=== PATIENT | female | born 1960 | race Caucasian/White ===

== ENCOUNTER 2016-04-08 17:11 | Inpatient (IN) | payer BC ==
--- NOTE | ~2016-04-08 | OP ---
Record Of Operation [facility] [address] [place] [address] NAME: BERHANE ADDISON : 60 STATUS : ADM IN PAT#: [id number] AGE: 55 ADM/REG DATE : 04/09/16 MR#: [id number] REPORT SERV DATE: 04/25/16 DICTATED BY: EDUARDO DIAZ DATE: 04/25/16 REPORT STATUS : Draft TRANSCRIBED BY: JOEL DATE: 04/25/16 DATE OF PROCEDURE: 04/25/2016 PREOPERATIVE DIAGNOSIS: Dysphagia. PROCEDURE: Panendoscopy with biopsy. POSTOPERATIVE DIAGNOSES: 1. Marked gastritis. 2. Gastric retention. PREMEDICATION: Diprivan. PROCEDURE IN DETAIL: The scope was inserted without difficulty. There was a moderate Schatzki ring at the GE junction. There was a large amount of retained liquid along most of the stomach, greater curvature, and posterior wall. The anterior wall shows marked gastritis, biopsies were taken. I could not identify the pylorus or distal stomach. Dilatation was not performed. IMPRESSION: 1. Schatzki ring. 2. Gastritis. 3. Gastric retention. RECOMMENDATIONS: 1. Begin Reglan 10 mg t.i.d. IV. 2. We will check Gastrografin tube injection. NUPUR Eduardo Diza M.D. / [id number] CC: Berna Conley
--- NOTE | ~2016-04-08 | CN ---
Consultation Report [place] [id number] [place]. [address] NAME: BERHANE ADDISON : 60 STATUS : ADM IN PAT#: [id number] AGE: 55 ADM/REG DATE : 04/09/16 MR#: [id number] REPORT SERV DATE: 04/20/16 DICTATED BY: EDUARDO DIAZ DATE: 04/19/16 REPORT STATUS : Draft TRANSCRIBED BY: JOEL DATE: 04/19/16 CONSULTATION DATE OF CONSULTATION: 04/19/2016 I am asked to see this lady with dysphagia. HISTORY OF PRESENT ILLNESS: This 55-year-old woman was admitted with severe systemic symptoms including abdominal pain, cramps, and diarrhea. Dehydration was noted. She has been treated with IV fluids. She has a history of dysphagia and reports dilatation of the esophagus about a year ago. She currently denies heartburn or abdominal pain in the sternal area. REVIEW OF SYSTEMS: Otherwise, unremarkable. PAST MEDICAL HISTORY: Remarkable for COPD, congestive heart failure, rheumatoid arthritis, polycystic liver disease, hypertension, and coronary artery disease. MEDICATIONS: Listed medications include Elavil, aspirin, Colace, Prozac, Synthroid, Neurontin, and Deltasone. PHYSICAL EXAMINATION: CHEST: Clear to auscultation. CARDIAC: Regular rhythm without rubs or murmurs. ABDOMEN: Soft and nontender. Bowel sounds normal. No palpable mass. LABORATORY DATA: Most recent lab studies show hemoglobin of 10.7, white count 5600. BUN is 20 and creatinine is 0.48. IMPRESSION: Dysphagia. PLAN: Proceed with panendoscopy and dilatation as fluid status has repaired. Thank you for allowing me to see this lady. MACO/JOEL Eduardo Diaz M.D. / [id number] Consultation Report [facility] [address] [place]. [address] NAME: BERHANE ADDISON : 60 STATUS : ADM IN PAT#: [id number] AGE: 55 ADM/REG DATE : 04/09/16 MR#: [id number] REPORT SERV DATE: 04/20/16 DICTATED BY: EDUARDO DIAZ DATE: 04/19/16 REPORT STATUS : Draft TRANSCRIBED BY: JOEL DATE: 04/19/16 CC: Jac Carrillo
--- NOTE | ~2016-04-08 | IDS ---
Interim Discharge Summary [facility] [address] [place]. [address] NAME: BERHANE ADDISON : 60 STATUS : ADM IN [facility]#: [id number] AGE: 55 ADM/REG DATE : 04/09/16 MR#: [id number] REPORT SERV DATE: 04/14/16 DICTATED BY: ALONZO MCELROY DATE: 04/14/16 REPORT STATUS : Draft TRANSCRIBED BY: MODL DATE: 04/14/16 ADMISSION DATE: 04/09/2016 DISCHARGE DATE: CONSULTING PHYSICIAN: Dr. Johnson for Ortho. INTERIM DIAGNOSES: 1. Extended-spectrum beta-lactamases Escherichia coli urinary tract infections. 2. Compression fracture T11, L1, L2. 3. Status post dehydration. 4. Status post nausea, vomiting, and diarrhea. 5. Dysphagia with history of gastroparesis and PEG. 6. Chronic obstructive pulmonary disease. 7. Coronary artery disease. 8. Hypothyroidism. 9. Chronic pain. 10.Depression. 11.Rheumatoid arthritis. 12.Status post hypomagnesemia. DIAGNOSTIC EXAM: CAT scan of the abdomen and pelvis showing no bowel obstruction or acute intraabdominal process appreciated, new compression fractures at L1 and L5, osteoporosis is inappropriate for the patient's age. MRI of the lumbar spine showing fractures with marrow edema indicating acute component at T11, L1, and L2. L1 fracture had some retropulsion of osseous material which causes mild stenosis of the central canal, right lateral recess. L5 compression is new from 2016, but does not appear acute annular disc bulges at L2-L3 and L3- L4. Chest x-ray showing normal cardiac size with pulmonary venous congestion unchanged. No acute infiltrate. HOSPITAL COURSE: Please refer to the H and P done by Dr. Mayen, dated 12/07/2016. Briefly, this is a 55-year-old female, who comes in for nausea, vomiting, and diarrhea. The patient has a history of esophageal strictures and diverticulum, history of dysphagia, gastroparesis, severe rheumatoid arthritis, and chronic steroids, came to the hospital for nausea, vomiting, diarrhea, weakness, and severe back pain. The patient has a history also of osteoporosis and had previous compression fractures. She has been bed-bound since last year. She said it is about six months that she has been not walking around. She follows up with Dr. Cooper and there was a plan for her to have an elective surgery on her esophagus once she is more mobile, however, she never became mobile. The patient is taking Jevity at home and from time to time she gets this diarrhea, it would go away, then come back, but on this admission, she started having some nausea and vomiting, and came to the emergency room. In the ER, she was found to be dehydrated with hypomagnesemia. She was given fluids and got better. Further evaluation revealed that she is hypothyroid and we increased her Synthroid, and also has an ESBL E. coli. We switched her antibiotics to tobramycin and she seems to be tolerating this well. Meanwhile, we switched her Jevity to promote and the patient seems to tolerate this and the nausea, vomiting, and diarrhea went away. She is now wanting medications for constipation. Meanwhile, she always kept on complaining about vomiting, Interim Discharge Summary [place] [id number] [place]. [address] NAME: BERHANE ADDISON : 60 STATUS : ADM IN [facility]#: [id number] AGE: 55 ADM/REG DATE : 04/09/16 MR#: [id number] REPORT SERV DATE: 04/14/16 DICTATED BY: ALONZO MCELROY DATE: 04/14/16 REPORT STATUS : Draft TRANSCRIBED BY: JOEL DATE: 04/14/16 however, it is more of secretions that is coming out and not of PEG feedings, and she keeps on taking her Swazi ice which is not bothering her. So, we are not exactly sure if this is real vomiting which we do not believe or it is just that she gets on spitting up phlegm. The patient got the above tests, and we got Ortho involved, they believe that she is not a candidate for surgery or kyphoplasty, and signed off. [facility] are now [facility] custom-made brace for her, and they have to fit it on her because her previous back brace is too small for her, however, there was some difficulty as she has this port in place and also her PEG tube, and there were tried to see if they can get some after the weekend, after which the patient will undergo physical therapy and go to rehab. [facility] the patient starting Friday. RAYMUNDO/JOEL Alonzo Mcelroy M.D. / [id number] CC: Jac Gagnon KATE
--- NOTE | ~2016-04-08 | IDS ---
Interim Discharge Summary [facility] [address] [place]. [address] NAME: BERHANE ADDISON : 60 STATUS : ADM IN PAT#: [id number] AGE: 55 ADM/REG DATE : 04/09/16 MR#: [id number] REPORT SERV DATE: 04/22/16 DICTATED BY: ESTEFANY BROWNE DATE: 04/22/16 REPORT STATUS : Draft TRANSCRIBED BY: MODL DATE: 04/22/16 ADMISSION DATE: 04/09/2016 DISCHARGE DATE: CURRENT HOSPITAL DIAGNOSES: 1. Urinary tract infection with ESBL E. coli, resolved. 2. Compression fractures. 3. Dysphagia. 4. History of gastroparesis with PEG tube. 5. Chronic obstructive pulmonary disease. 6. Coronary artery disease. 7. Chronic pain management. CONSULTATIONS: As listed in interim summary by Dr. Amaya on 04/14/2016 with the addition of Dr. Bart Casey, GI and Dr. Rodriguez, Palliative Care. PROCEDURES: As listed in the interim summary on the 04/14/2016 with the addition of upper endoscopy. CURRENT PHYSICAL FINDINGS AND HPI: Please see previous dictated H and Ps as well as interim summaries. I assumed the patient's care on the will dictate to that point. At that time, the patient had recovered from her UTI, was tolerating her tube feeds through her PEG tube. Attempts at placement had been made, however, because of the patient's inability to participate with PT, placement was not available. She was getting pain medications at that time, and parameters were listed as she was getting asymptomatic, hypotension. Palliative Care was consulted at that time for assistance with her pain medications, and they were adjusted on set date. On the 04/17/2016, the patient had a complaint of constipation. Mag citrate, Relistor were given. She also had a concern about a possible abnormal previous CT at outside facility. Those records were requested, however, subsequent CTs here since that time have showed benign findings. The patient stated that she at times was able to tolerate solid food at home and requested a soft diet which was done. The following day, the patient was still complaining of constipation. KUB showed no obstruction, but significant fecal burden. Palliative Care continued to follow. The patient then complained of chest pain on the 04/19/2016 and felt she may have recurrent esophageal stricture. She was made n.p.o. Chest x-ray, EKG were done which were negative. GI was consulted. She continued to complain of constipation and Relistor was given, a second dose. GI answered the consultation on the 04/19/2016 but was not going to scope until the so her tube feeds were resumed. IV fluids were discontinued and with still no further bowel movement, Dulcolax suppository, than a fleets enema and finally she did have significant bowel movement with enema. She did complain of some cough. There were no signs of pneumonia or aspiration. She was given Spiriva which seemed to help. She underwent her upper endoscopy on 04/22/2016, however, she cannot be safely dilated so GI is planning to do a repeat endoscopy in two days. DISPOSITION: The patient is currently reasonably stable on all her medical conditions upon resolution of her dysphagia. Current plan is to discharge home. Discharge planning has Interim Discharge Summary [address] [address] NAME: BERHANE ADDISON : 60 STATUS : ADM IN [facility]#: [id number] AGE: 55 ADM/REG DATE : 04/09/16 MR#: [id number] REPORT SERV DATE: 04/22/16 DICTATED BY: ESTEFANY BROWNE DATE: 04/22/16 REPORT STATUS : Draft TRANSCRIBED BY: JOEL DATE: 04/22/16 arranged transport, has arranged assistance getting to her PCP for one last visit. They have arranged a traveling physician group to make home visits to continue the care and renew her prescriptions and to provide also home assistance, and PT and nursing care are coordinated. ARDEN/JOEL Estefany Browne M.D. / [id number] CC: Jac Carrillo
--- NOTE | ~2016-04-08 | CN ---
Consultation Report [place] [address] [facility] [place]. [address] NAME: BERHANE ADDISON : 60 STATUS : ADM IN [facility]#: [id number] AGE: 55 ADM/REG DATE : 04/09/16 MR#: [id number] REPORT SERV DATE: 04/09/16 DICTATED BY: REJI MORAES DATE: 04/09/16 REPORT STATUS : Draft TRANSCRIBED BY: MODL DATE: 04/09/16 CONSULTATION DATE OF CONSULTATION: CHIEF COMPLAINT: Back pain. HISTORY OF PRESENT ILLNESS: A 55-year-old female with a long history of severe rheumatoid arthritis. The patient has had many compression fractures in the past. She had a small fall in December when she had acute increase in back pain. X-rays and scans at that time showed additional fractures. She has been in a lumbosacral orthosis since that time but also has been essentially bedridden because of pain of her back. The patient has had many medical problems including a severe gastroparesis and she is on a feeding tube. She is also on steroids for her rheumatoid arthritis, and she is on chronic narcotics for chronic pain syndrome. She is also using significant doses of sleep medications. The patient was admitted last night because of multiple reasons and nausea and vomiting, etc., also because of chronic back pain. The patient has not been ambulatory at all. In fact, she does not need transfer in and out of bed any longer. She has not been in a wheelchair for several days. She is totally bedridden at this point all because of "back pain." She has had no loss of bowel or bladder function. The chart has been reviewed. The history and physical has been reviewed in its entirety. PAST MEDICAL HISTORY: As noted. PAST SURGICAL HISTORY: As noted. CURRENT MEDICATIONS: As noted. ALLERGIES: NOTED. SOCIAL HISTORY: As noted. FAMILY HISTORY: As noted. PHYSICAL EXAMINATION: GENERAL: She is alert, cooperative, and did not appear in acute painful distress. HEENT: Her cervical spine to the thoracic spine did not have deformities. It did not have appreciable pain with just palpation. She seemed to wince and complain of pain just with touching of the skin of her lumbar spine. There are no step-offs in the midline. There is no paraspinous muscle spasm. Consultation Report [place] [address] [facility] [place]. [address] NAME: BERHANE ADDISON : 60 STATUS : ADM IN PAT#: [id number] AGE: 55 ADM/REG DATE : 04/09/16 MR#: [id number] REPORT SERV DATE: 04/09/16 DICTATED BY: REJI MORAES DATE: 04/09/16 REPORT STATUS : Draft TRANSCRIBED BY: MODLuiz DATE: 04/09/16 NEUROLOGIC: Her motor strength seemed to be grossly intact. Her reflexes are 1/4. Toes are downgoing. There are no major sensory deficit. No signs of myelopathy noted. CT scan of the abdomen and pelvis is all I have available. It does show compression fractures in every vertebra of the lumbar spine. The radiologist has opined that the L1 and L5 are new and this may be the case. I do not have the comparative films to make that determination. ASSESSMENT: 1. Severe osteoporosis secondary to gastroparesis, malabsorption syndrome, steroid usage, etc. 2. Multiple compression fractures, old and some possibly new. 3. Chronic, rather high-dose opioid narcotic dependency. RECOMMENDATIONS: At this time, I will get a new MRI to determine the status of the fractures of her back, new versus old. The fact that she has been totally bedridden since December and the fact that she has to take high-dose narcotics on a daily basis makes me quite sure that she is not a surgical candidate. If she has severe osteoporosis as it appears which is fragility fractures occurring just with the weight of her body, she is not a candidate for kyphoplasty because kyphoplasty hardens one bone and causes such as stress riser at the adjacent bones that there are always fractures at the adjacent bones. One would wind up almost having to do a kyphoplasty on every vertebra of her low back, which is not possible or reasonable. I think an endocrinology evaluation would be appropriate for her severe the bone disorder and also to help assess whether this is truly osteomalacia versus osteoporosis. VOLODYMYR/JOEL Reji Moraes D.O. / [id number] CC: Jac Carrillo KATE
--- NOTE | ~2016-04-08 | HP ---
History And Physical [place] [address] [place]. [address] NAME: BERHANE GARCIA : 60 STATUS : ADM IN [facility]#: [id number] AGE: 55 ADM/REG DATE : 04/09/16 MR#: [id number] REPORT SERV DATE: 04/09/16 DICTATED BY: DARÍO FLETCHER DATE: 04/09/16 REPORT STATUS : Draft TRANSCRIBED BY: MODL DATE: 04/09/16 DATE OF ADMISSION: 04/09/2016 CHIEF COMPLAINT: Intractable nausea, vomiting, and diarrhea, weakness, and severe back and lower abdominal pain. HISTORY OF PRESENT ILLNESS: This is a 55-year-old female with a history of esophageal strictures and diverticulum which was operated on by Dr. Rebollar, history of dysphagia, gastroparesis, severe rheumatoid arthritis on chronic steroids, who presents to the emergency room at [facility] with the above-mentioned complaint. History is obtained from the patient, and reviewing data available on the [employer] system. According to the patient, she had been in her usual state of health until about six days ago when she started having severe nausea, vomiting, and diarrhea. She had tried every known [id number] medicine or treatment, but her diarrhea was severe. She states whatever she takes almost feels like it runs through her. In the last day or two, she started feeling very weak and during this time she has also had severe back pain. She fell down somewhere in December 2015 and since then has been having excruciating back pain and is on multiple pain medicines. She states her pain continues unabated despite her pain medications. She finally decided to come to the emergency room to be evaluated. In the emergency room, her blood pressures were 90 systolic. Unfortunately, she could not stand up for tilt test. Workup also revealed she had a urinary tract infection and the CT scan of her abdomen and pelvis showed new lumbar spinal puncture fracture at L1 and L5. Hospitalist Service is asked to admit her for further evaluation and treatment. At the time of my evaluation, she denied any chest pain, palpitations, or orthopnea. She had no cough, hemoptysis, night sweats, or weight loss. She denied any fevers or chills. She did have dysuria with no hematuria, hematemesis, or hematochezia. She did have severe nausea, vomiting, and diarrhea, which would not be controlled by anything she took. She says it is watery. No other history of recent travel or exposures other than those mentioned above. PAST MEDICAL HISTORY: Significant for history of rheumatoid arthritis with deformities in both her hands, history of polycystic ovarian disease, history of esophageal strictures and diverticulum status post surgery by Dr. Rebollar in June 2015. She has chronic dysphagia, has had PEG tubes placed and removed. She also has gastroparesis. She has essential hypertension and hypothyroidism. She also has coronary artery disease. SOCIAL HISTORY: She used to smoke, has about [id number] history of smoking and has successfully quit smoking about six to eight weeks ago. She denied alcohol use or recreational drug use. FAMILY HISTORY: Noncontributory. MEDICATIONS: Her medications at home were reviewed by me in the chart today and reordered by History And Physical [address] [place]. [address] NAME: BERHANE GARCIA : 60 STATUS : ADM IN [facility]#: [id number] AGE: 55 ADM/REG DATE : 04/09/16 MR#: [id number] REPORT SERV DATE: 04/09/16 DICTATED BY: DARÍO FLETCHER DATE: 04/09/16 REPORT STATUS : Draft TRANSCRIBED BY: JOEL DATE: 04/09/16 me. REVIEW OF SYSTEMS: As in history of present illness. All other systems were reviewed in detail and are quite unremarkable. PHYSICAL EXAMINATION: GENERAL: This is a pleasant 55-year-old not in any acute distress. HEENT: Her head is atraumatic and normocephalic. She is alert, awake, oriented to time, place, and person. Her pupils are equal, reacting to light and accommodating. External ocular muscles are intact. Membranes are moist and pink. Sclera is nonicteric. NECK: Supple with no jugular venous distention, lymphadenopathy, or thyromegaly. LUNGS: Clear to auscultation with no wheezes, rubs, or crackles. HEART: Heart sounds were regular with no murmurs, rubs, or gallops. ABDOMEN: Soft and nontender. Bowel sounds are present. EXTREMITIES: No cyanosis, clubbing, or edema. As mentioned above, she has bony deformities due to her rheumatoid arthritis. NEUROLOGIC: Grossly intact. No focal sensory or motor deficits. Higher functions were intact. She was able to move all four extremities. VITAL SIGNS: Her temperature was 99.5, pulse 96, respirations 16 a minute, blood pressure was 108/70, and oxygen saturations were 93% breathing 2 L of oxygen via nasal cannula. LABORATORY DATA: Reviewed on the [employer] system showed normal CMP with a blood glucose of 70. CBC showed a normal white blood cell count of 7,100. Hemoglobin, hematocrit, and platelet count were within normal limits. Urinalysis showed a large leukocyte esterase, nitrite was positive with 52 wbc's and many bacteria. Films of the CT scan of her abdomen and pelvis were reviewed by me on the PACS today and interpreted by me. Official radiology report was also reviewed. There is new compression fracture of the lumbar vertebrae, L1 and L5. IMPRESSION: 1. Intractable nausea, vomiting, and diarrhea. 2. Urinary tract infection. 3. Hypotension. 4. New compression fractures at L1 and L5. 5. Chronic obstructive pulmonary disease. 6. History of congestive heart failure. 7. Rheumatoid arthritis. 8. Hypertension. 9. Hypothyroidism. 10.Coronary artery disease. 11.Failure to thrive. History And Physical [address] [address] NAME: BERHANE GARCIA : 60 STATUS : ADM IN [facility]#: [id number] AGE: 55 ADM/REG DATE : 04/09/16 MR#: [id number] REPORT SERV DATE: 04/09/16 DICTATED BY: DARÍO FLETCHER DATE: 04/09/16 REPORT STATUS : Draft TRANSCRIBED BY: JOEL DATE: 04/09/16 PLAN: We will admit Mrs. Garcia to the Hospitalist Service with telemetry for close monitoring. After cultures are obtained, we will start her on empiric IV antibiotics, follow Gram stains and cultures. We will start her on intravenous fluids for volume replacement cautiously, follow output, and also check her chemistry, renal function, and CBC in the morning. We will max her bronchodilator treatments, and continue supplemental oxygen therapy at this time. We will also consult Ortho Spine to evaluate her for a compression fracture maybe even kyphoplasty if possible. Meanwhile for now we will establish pain control with intravenous Dilaudid as needed. She is on a bunch of pain medications at home as well. We will go ahead and check her thyroid function and continue replacement therapy at this time. We will also send stool for C. diff here. Social Work needs to be probably involved in any placement or rehab if possible. We will start her on unfractionated heparin for DVT prophylaxis while here. I have discussed the above plans with the patient. Her questions were answered and she is agreeable to the above recommendations. Hospitalist Service will be following her during her stay here. /JOEL Darío Fletcher M.D. / [id number] CC: Jac Carrillo KATE
--- NOTE | ~2016-04-08 | DS ---
Discharge Summary [facility] [address] [place]. [address] NAME: BERHANE ADDISON : 60 STATUS : DIS IN PAT#: [id number] AGE: 55 ADM/REG DATE : 04/09/16 MR#: [id number] REPORT SERV DATE: 05/04/16 DICTATED BY: DATE: REPORT STATUS : Draft TRANSCRIBED BY: MODL DATE: 05/03/16 ADMISSION DATE: 04/09/2016 DISCHARGE DATE: 05/03/2016 DISCHARGE DIAGNOSES: 1. Esophageal diverticulum. 2. Gastroparesis. 3. Leaking percutaneous endoscopic gastrostomy tube. 4. Dysphagia. 5. Hypothyroid. 6. Hypoalbuminemia. 7. Chronic pain syndrome. 8. Chronic compression fractures, with functional impairment. 9. Urinary tract infection. 10.Rheumatoid arthritis. CONSULTATIONS: Dr. Bart Casey with GI and Dr. Reji Johnson with Orthopedics and Dr. Rodriguez with Palliative Care. HOSPITAL COURSE: The patient is a 55-year-old white female who was admitted with intractable nausea, vomiting, diarrhea, weakness, and severe back and lower abdominal pain. The patient has a history of esophageal strictures and diverticulum, which has been previously operated on by Dr. Cooper. The patient also has a medical history of dysphagia, gastroparesis, severe rheumatoid arthritis on chronic steroid use. Please see Dr. Darío Mayen's dictation on 04/09/2016. Care was then picked up by Dr. Ned Amaya. It was discovered that the patient had ESBL E. coli urinary tract infection and new compression fractures. CAT scans of the abdomen and pelvis showed no bowel obstruction or intra-abdominal process. MRI of the spine showed fractures with marrow edema and chest x-ray showed normal cardiac size with pulmonary venous congestion unchanged. The patient did have her tube feedings switched from Jevity to promote and the patient has been tolerating that much better during her stay. Please see interim discharge summary by Dr. Librado Ponce starting on 04/22/2016 and James Yeh, nurse practitioner, starting on 04/29/2016. The patient was having a leaking PEG tube and the patient continues to have swallowing difficulties. The patient has been instructed by Speech Therapy to be strict n.p.o. It was discovered that the patient has a very large esophageal diverticulum, which is affecting her swallowing and the patient also is having residual in her lower esophagus. The patient was deemed to be a poor surgical candidate by Dr. Cooper. General surgery, Dr. Herman Stein is also being consulted for possible intervention. The patient has had three EGDs during her stay, which showed marked gastric retention. The patient is at goal rate of promote tube feeding at 70 mL an hour with minimal reflux or nausea. Dr. Stein also reviewed her imaging of large diverticulum and decided she was not a surgical candidate for him either. The patient is being discharged home with home doctors and Home Health and Palliative Care has been managing her pain control during this visit. The patient has been transitioned from Dilaudid to p.o. oxycodone per Dr. Rodriguez and has done well with this change. PHYSICAL EXAMINATION: Discharge Summary [address] [place]. [address] NAME: BERHANE ADDISON : 60 STATUS : DIS IN PAT#: [id number] AGE: 55 ADM/REG DATE : 04/09/16 MR#: [id number] REPORT SERV DATE: 05/04/16 DICTATED BY: DATE: REPORT STATUS : Draft TRANSCRIBED BY: MODL DATE: 05/03/16 VITAL SIGNS: Blood pressure is 102/67, O2 sat is 97% on 1 L nasal cannula, temp is 98.1, heart rate is 104, and respirations are 18. HEENT: Head is atraumatic, normocephalic. Pupils are equal, round, reactive to light and accommodation. Sclerae are clear and nonicteric. NECK: Supple with no obvious thyromegaly or lymphadenopathy. Neck veins are flat. CARDIAC: The patient has S1 and S2 with no obvious murmurs, rubs, or gallops. The patient is in a regular rhythm. ABDOMEN: Soft and PEG tube is present in her left abdomen. The patient has hypoactive bowel sounds. Last bowel movement was 05/01/2016. LUNGS: Clear with normal respiratory effort. MUSCULOSKELETAL: Moves all extremities x4. The patient is bed ridden due to multiple spinal fractures with functional impairment. EXTREMITIES: Joints in both hands are red and swollen and the patient demonstrates sensitivity to movement. Dorsalis pedis and posterior tibial pulses present bilaterally. No significant edema, clubbing, or cyanosis. SKIN: Warm and dry with normal color and turgor. NEUROLOGIC/PSYCHIATRIC: The patient is alert and oriented x3. Is pleasant and cooperative. DISCHARGE DIET: The patient is aware that she is to be n.p.o. and states that she will eat when she wants to eat. DISCHARGE MEDICATIONS: Elavil 37.5 mg daily, Prozac 40 mg daily, aspirin 81 mg daily, baclofen 10 mg every eight hours, Colace 100 mg twice daily, Prozac 20 mg every morning, Neurontin 600 mg every eight hours, levothyroxine 225 mcg daily, Ambien 10 mg at bedtime p.r.n., oxycodone 30 mg every four hours as needed, Deltasone 5 mg daily, albuterol two puffs twice daily as needed for shortness of breath, Phenergan 37.5 mg every six hours as needed for nausea, Silvadene cream topically for PEG tube site as needed, prednisone taper dose pack for rheumatoid arthritis flare up. ALLERGIES: THE PATIENT IS ALLERGIC TO IODINE AND SHELLFISH, MORPHINE AND IMITREX. DISCHARGE INSTRUCTIONS: The patient is to follow up with her PCP in the next five to seven days for extensions of her pain medications until the home doctors are able to visit with her. The older adult social work specialist has been in contact with the home care doctors and they are aware of the need for quicker care of the patient. Should the patient have any more symptoms of extreme nausea and vomiting or excessive pain, she is to call her PCP or present to the emergency department. The patient will be on O2 2 L continuously. Approximately, 50 minutes has been spent coordinating discharge care of this patient including [id number] encounter and summarization of the discharge. GILDARDO/JOEL Cathy Dougherty NP Discharge Summary [address] [address] NAME: BERHANE ADDISON : 60 STATUS : DIS IN PAT#: [id number] AGE: 55 ADM/REG DATE : 04/09/16 MR#: [id number] REPORT SERV DATE: 05/04/16 DICTATED BY: DATE: REPORT STATUS : Draft TRANSCRIBED BY: JOEL DATE: 05/03/16 / [id number] CC: MD Berna Kaplan
--- NOTE | ~2016-04-08 | OP ---
Record Of Operation [facility] [address] [place]. [address] NAME: BERHANE ADDISON : 60 STATUS : DIS IN PAT#: [id number] AGE: 56 ADM/REG DATE : 04/09/16 MR#: [id number] REPORT SERV DATE: 06/07/16 DICTATED BY: EDUARDO DIAZ DATE: 06/07/16 REPORT STATUS : Draft TRANSCRIBED BY: MODL DATE: 06/07/16 DATE OF PROCEDURE: 04/22/2016 PROCEDURE: Incomplete panendoscopy. PREOPERATIVE DIAGNOSIS: Nausea and vomiting. POSTOPERATIVE DIAGNOSIS: Gastric retention. PREMEDICATION: Diprivan. DESCRIPTION OF PROCEDURE: The scope was inserted without difficulty. There was a moderate Schatzki ring at the GE junction, but not obstructive in size. The stomach had a large amount of retained gastric contents, primarily liquid. I could not identify the pylorus or the distal stomach. Dilatation was not performed. IMPRESSION: 1. Gastric retention. 2. Incomplete panendoscopy. PLAN: We will try clear liquid diet and NG tube and repeat the procedure in two to three days or so. NUPUR Eduardo Diaz M.D. / [id number] CC: MD Berna Kaplan
--- NOTE | ~2016-04-08 | IDS ---
Interim Discharge Summary [facility] [address] [place]. [address] NAME: BERHANE ADDISON : 60 STATUS : ADM IN [facility]#: [id number] AGE: 55 ADM/REG DATE : 04/09/16 MR#: [id number] REPORT SERV DATE: 04/30/16 DICTATED BY: JAMES RUIZ DATE: 04/29/16 REPORT STATUS : Draft TRANSCRIBED BY: MODL DATE: 04/29/16 ADMISSION DATE: 04/09/2016 DISCHARGE DATE: CURRENT INTERIM DIAGNOSES: List includes: 1. Questionable gastric outlet obstruction versus gastroparesis. 2. Dysphagia. 3. Leaking PEG tube. 4. Hypothyroidism with most recent TSH of 72.400, on current Synthroid therapy. 5. Moderate malnutrition. 6. Hypoalbuminemia with most recent albumin 2.0. 7. Chronic compression fractures, functional impairment in a nonambulatory patient. 8. Chronic pain syndrome. 9. Urinary tract infection, present on admission, treated. 10.Constipation. HISTORY OF PRESENT ILLNESS: This is a pleasant, but unfortunate, 55-year-old female, who presented originally with intractable nausea, vomiting, diarrhea, weakness, severe back pain, lower abdominal pain. Please see initial H and P of Dr. Darío Mayen, as patient admitted to the Hospitalist Service for further evaluation and treatment. Please also see the interim discharge summaries of Dr. Ned Amaya and Dr. Librado Ponce. CONSULTANTS DURING THIS ADMISSION: Include Spine Surgery Dr. Reji Johnson; GI Dr. Bart Casey; and General Surgery, Dr. Herman Stein. HOSPITAL COURSE: I began seeing the patient on 04/23/2016 where she was set undergo a repeat endoscopy on . She was feeling somewhat symptomatically better, was continued on Synthroid therapy, was afebrile, and vital signs stable. The EGD was actually delayed and was not performed until 04/25/2016 but again showed marked gastric retention, and no dilatation was performed. She had her prior EGD done on 04/22/2016. Also, there was some gastritis. Afterwards GI and General surgery both saw the patient, did recommend that her tube feeding could be restarted, and she was slowly advanced to goal rate of 70 mL an hour with her Promote tube feeding. She underwent a contrast injection of her PEJ tube that showed it to be functional. She also underwent GI and barium swallow study that showed persistent large diverticulum extending mid to lower thoracic esophagus, esophageal dysmotility, retained debris within the mid and upper thoracic esophagus. After repositioning, there was some emptying of the barium into the distal thoracic esophagus from both diverticulum and mid-thoracic esophagus. It is a difficult examination overall. Findings were discussed with Dr. Stein. There are limited and probably no surgical options going forward. She is currently pending a CT of the abdomen and pelvis to further assess this questionable gastric outlet obstruction and gastroparesis because of the retained gastric contents on two EGDs. DISPOSITION: Once this has all been flushed out with GI and Surgery will be home as patient has home doctors and home health that have accepted her and hopefully, this can be accomplished soon once the issue with her feeding and CT scan have been resolved. During Interim Discharge Summary [place] [id number] [place]. [address] NAME: BERHANE ADDISON : 60 STATUS : ADM IN [facility]#: [id number] AGE: 55 ADM/REG DATE : 04/09/16 MR#: [id number] REPORT SERV DATE: 04/30/16 DICTATED BY: JAMES RUIZ DATE: 04/29/16 REPORT STATUS : Draft TRANSCRIBED BY: JOEL DATE: 04/29/16 this admission, Palliative Care has also been following the patient given her difficult situation overall, as there were no surgical options for her compression fractures, and the patient had been updated at bedside about the plan going forward. She is in agreement. VONNIE/JOEL James Ruiz NP / [id number] CC: Jac Solorio
[2016-04-08 16:00] LABS: BASOPHILS 0.6 %; BASOPHILS ABSOLUTE 0.04 10/3/uL (0.0-0.16); EOSINOPHILS 1.4 %; HEMATOCRIT 39.8 % (36.0-48.0); HEMOGLOBIN 13.3 g/dL (12.0-16.0); IMMATURE GRANULOCYTES 0.3 %; IMMATURE GRANULOCYTES ABSOLUTE 0.02 10/3/uL (0.0-0.11); LYMPHOCYTES 32.4 %; LYMPHOCYTES ABSOLUTE 2.29 10/3/uL (0.67-4.30); MANUAL DIFF NO %; MEAN CORPUS HGB CONC 33.4 g/dL (32.0-36.0); MEAN CORPUSCULAR HEMOGLOB 32.6 pg (26.0-34.0); MEAN CORPUSCULAR VOLUME 97.5 fL (80-100); MEAN PLATELET VOLUME 10.6 fL (9.2-13.0); MONOCYTES 3.7 %; MONOCYTES ABSOLUTE 0.26 10/3/uL (0.21-1.20); NEUTROPHILS 61.6 %; NEUTROPHILS ABSOLUTE 4.35 10/3/uL (2.02-8.40); PLATELET COUNT 269 10/3/uL (150-400); RBC DISTRIBUTION WIDTH 13.5 % (12.0-16.0); RED CELL COUNT 4.08 10/6/uL (4.0-5.6); WHITE BLOOD CELLS 7.1 10/3/uL (4.5-10.5)
[2016-04-08 16:16] LABS: A/G RATIO 0.5 (0.7-1.9); ALBUMIN 2.9 G/DL (3.5-5.0); ALKALINE PHOSPHATASE 132 U/L (45-117); BUN (BLOOD UREA NITROGEN) 14 MG/DL (6-23); CALCIUM, SERUM 8.5 MG/DL (8.5-10.4); CHLORIDE, SERUM 103 MMOL/L (96-112); CO2 (CARBON DIOXIDE) 24 MMOL/L (24-34); CREATININE 0.51 MG/DL (0.55-1.02); GFR AFRICAN AMERICAN 125 ML/MIN (>=60); GFR NON AFRICAN AMERICAN 108 ML/MIN (>=60); GLOBULIN 5.8 G/DL (2.5-4.1); GLUCOSE, SERUM 70 MG/DL (60-99); POTASSIUM, SERUM 3.8 MMOL/L (3.5-5.3); SGOT(AST) 28 U/L (5-40); SGPT(ALT) 25 U/L (5-65); SODIUM, SERUM 140 MMOL/L (135-148); TOTAL BILIRUBIN 0.3 MG/DL (0-1.2); TOTAL PROTEIN 8.7 G/DL (6.0-8.5)
[2016-04-08 16:20] LABS: LACTATE 0.8 MMOL/L (0.3-2.4)
[~2016-04-08 17:11] MED LIST: AMB5 PO; AMIT75 PO; B121000P IM; NORCO1 TAB PO; P5 PO; PROAIR HFA INH; PROZAC PO; REGL PO; SYNTHROID200 MCG PO
[2016-04-08 17:36] LABS: ASCORBIC ACID (UR NOT ORDER) NEG (NEG); BILIRUBIN, URINE NEGATIVE (NEG); ER URINALYSIS TAT 0 Hrs 09 Mins; KETONE, URINE 20 MG/DL (NEG); LEUKOCYTE ESTERASE(NOT OR LARGE (NEG); NITRITE (URINE) POS (NEG); WBC (NOT ORDERED) (RFLEX) 52 (0-5)
[2016-04-08 17:51] LABS: PROCALCITONIN <0.05 ng/mL (<0.5)
[2016-04-08] MEDS ORDERED: ROXICODONE15 MG PEG (23:20)
[2016-04-08] MEDS ORDERED: NORCO1 TAB PEG (23:20)
[2016-04-08] MEDS ORDERED: LIOR10 PEG (23:21)
[2016-04-08] MEDS ORDERED: NEUR600 PEG (23:22)
[2016-04-08] MEDS ORDERED: PR25 PEG (23:22)
[2016-04-08] MEDS ORDERED: SYN125 PO (23:23)
[2016-04-08] MEDS ORDERED: PROZAC PEG (23:23)
[2016-04-08] MEDS ORDERED: PROZAC40 MG PEG (23:23)
[2016-04-08] MEDS ORDERED: AMIT25 PEG (23:24)
[2016-04-08] MEDS ORDERED: P5 PEG (23:24)
[2016-04-08] MEDS ORDERED: AMB10 PEG (23:24)
[2016-04-08] MEDS ORDERED: PROAIR HFA INH (23:25)
[2016-04-08] MEDS ORDERED: SILVER SULFADIAZINE TOP (23:26)
[2016-04-09 14:50] LABS: BASOPHILS 0.5 %; BASOPHILS ABSOLUTE 0.03 10/3/uL (0.0-0.16); EOSINOPHILS 3.4 %; HEMOGLOBIN 11.4 g/dL (12.0-16.0); IMMATURE GRANULOCYTES 0.2 %; IMMATURE GRANULOCYTES ABSOLUTE 0.01 10/3/uL (0.0-0.11); LYMPHOCYTES 37.1 %; LYMPHOCYTES ABSOLUTE 2.19 10/3/uL (0.67-4.30); MEAN CORPUS HGB CONC 32.9 g/dL (32.0-36.0); MEAN CORPUSCULAR HEMOGLOB 32.5 pg (26.0-34.0); MEAN CORPUSCULAR VOLUME 98.9 fL (80-100); MEAN PLATELET VOLUME 10.3 fL (9.2-13.0); MONOCYTES 4.7 %; MONOCYTES ABSOLUTE 0.28 10/3/uL (0.21-1.20); NEUTROPHILS 54.1 %; PLATELET COUNT 219 10/3/uL (150-400); RBC DISTRIBUTION WIDTH 13.9 % (12.0-16.0); RED CELL COUNT 3.51 10/6/uL (4.0-5.6); WHITE BLOOD CELLS 5.9 10/3/uL (4.5-10.5)
[2016-04-09 14:52] LABS: HEMATOCRIT 34.7 % (36.0-48.0); MANUAL DIFF NO %
[2016-04-09 15:11] LABS: BUN (BLOOD UREA NITROGEN) 11 MG/DL (6-23); CALCIUM, SERUM 7.6 MG/DL (8.5-10.4); CHLORIDE, SERUM 111 MMOL/L (96-112); CO2 (CARBON DIOXIDE) 26 MMOL/L (24-34); CREATININE 0.52 MG/DL (0.55-1.02); GFR AFRICAN AMERICAN 125 ML/MIN (>=60); GFR NON AFRICAN AMERICAN 108 ML/MIN (>=60); GLUCOSE, SERUM 72 MG/DL (60-99); PHOSPHORUS, SERUM 3.7 MG/DL (2.5-4.5); POTASSIUM, SERUM 3.4 MMOL/L (3.5-5.3); PREALBUMIN 35.7 MG/DL (17.0-43.0); SODIUM, SERUM 144 MMOL/L (135-148)
[2016-04-10 04:56] LABS: BASOPHILS 0.2 %; BASOPHILS ABSOLUTE 0.01 10/3/uL (0.0-0.16); EOSINOPHILS 2.9 %; EOSINOPHILS ABSOLUTE 0.18 10/3/uL (0.0-0.53); HEMATOCRIT 34.5 % (36.0-48.0); IMMATURE GRANULOCYTES 0.2 %; IMMATURE GRANULOCYTES ABSOLUTE 0.01 10/3/uL (0.0-0.11); LYMPHOCYTES 25.3 %; LYMPHOCYTES ABSOLUTE 1.57 10/3/uL (0.67-4.30); MEAN CORPUS HGB CONC 31.9 g/dL (32.0-36.0); MEAN CORPUSCULAR HEMOGLOB 32.3 pg (26.0-34.0); MEAN CORPUSCULAR VOLUME 101.2 fL (80-100); MEAN PLATELET VOLUME 10.5 fL (9.2-13.0); MONOCYTES 4.4 %; MONOCYTES ABSOLUTE 0.27 10/3/uL (0.21-1.20); NEUTROPHILS ABSOLUTE 4.16 10/3/uL (2.02-8.40); PLATELET COUNT 212 10/3/uL (150-400); RBC DISTRIBUTION WIDTH 13.8 % (12.0-16.0); RED CELL COUNT 3.41 10/6/uL (4.0-5.6); WHITE BLOOD CELLS 6.2 10/3/uL (4.5-10.5)
[2016-04-10 05:02] LABS: MANUAL DIFF NO %
[2016-04-10 05:06] LABS: BUN (BLOOD UREA NITROGEN) 7 MG/DL (6-23); CALCIUM, SERUM 7.6 MG/DL (8.5-10.4); CHLORIDE, SERUM 111 MMOL/L (96-112); CO2 (CARBON DIOXIDE) 24 MMOL/L (24-34); CREATININE 0.54 MG/DL (0.55-1.02); GFR AFRICAN AMERICAN 123 ML/MIN (>=60); GFR NON AFRICAN AMERICAN 106 ML/MIN (>=60); GLUCOSE, SERUM 88 MG/DL (60-99); SODIUM, SERUM 144 MMOL/L (135-148)
[2016-04-10 11:33] LABS: FOLATE 38.6 NG/ML (>5.2)
[2016-04-11 03:39] LABS: INFLUENZA A SCREEN NEGATIVE (NEGATIVE); INFLUENZA B SCREEN NEGATIVE (NEGATIVE)
[2016-04-11 06:11] LABS: BUN (BLOOD UREA NITROGEN) 11 MG/DL (6-23); CALCIUM, SERUM 7.5 MG/DL (8.5-10.4); CHLORIDE, SERUM 102 MMOL/L (96-112); CO2 (CARBON DIOXIDE) 28 MMOL/L (24-34); CREATININE 0.47 MG/DL (0.55-1.02); GFR AFRICAN AMERICAN 129 ML/MIN (>=60); GFR NON AFRICAN AMERICAN 111 ML/MIN (>=60); GLUCOSE, SERUM 89 MG/DL (60-99); POTASSIUM, SERUM 3.9 MMOL/L (3.5-5.3); SODIUM, SERUM 138 MMOL/L (135-148)
[2016-04-12 06:30] LABS: BASOPHILS 0.3 %; BASOPHILS ABSOLUTE 0.02 10/3/uL (0.0-0.16); EOSINOPHILS 1.9 %; EOSINOPHILS ABSOLUTE 0.12 10/3/uL (0.0-0.53); HEMATOCRIT 31.5 % (36.0-48.0); HEMOGLOBIN 10.2 g/dL (12.0-16.0); IMMATURE GRANULOCYTES 0.2 %; IMMATURE GRANULOCYTES ABSOLUTE 0.01 10/3/uL (0.0-0.11); LYMPHOCYTES 20.7 %; LYMPHOCYTES ABSOLUTE 1.34 10/3/uL (0.67-4.30); MEAN CORPUS HGB CONC 32.4 g/dL (32.0-36.0); MEAN CORPUSCULAR HEMOGLOB 32.4 pg (26.0-34.0); MEAN PLATELET VOLUME 10.4 fL (9.2-13.0); MONOCYTES 4.6 %; NEUTROPHILS 72.3 %; NEUTROPHILS ABSOLUTE 4.67 10/3/uL (2.02-8.40); PLATELET COUNT 199 10/3/uL (150-400); RED CELL COUNT 3.15 10/6/uL (4.0-5.6); WHITE BLOOD CELLS 6.5 10/3/uL (4.5-10.5)
[2016-04-12 06:33] LABS: MANUAL DIFF NO %
[2016-04-12 06:36] LABS: BUN (BLOOD UREA NITROGEN) 12 MG/DL (6-23); CALCIUM, SERUM 7.7 MG/DL (8.5-10.4); CHLORIDE, SERUM 103 MMOL/L (96-112); CO2 (CARBON DIOXIDE) 31 MMOL/L (24-34); CREATININE 0.43 MG/DL (0.55-1.02); GFR AFRICAN AMERICAN 133 ML/MIN (>=60); GFR NON AFRICAN AMERICAN 115 ML/MIN (>=60); GLUCOSE, SERUM 95 MG/DL (60-99); POTASSIUM, SERUM 4.1 MMOL/L (3.5-5.3); SODIUM, SERUM 141 MMOL/L (135-148)
[2016-04-13 10:20] LABS: BUN (BLOOD UREA NITROGEN) 16 MG/DL (6-23); CALCIUM, SERUM 8.5 MG/DL (8.5-10.4); CHLORIDE, SERUM 101 MMOL/L (96-112); CO2 (CARBON DIOXIDE) 31 MMOL/L (24-34); CREATININE 0.43 MG/DL (0.55-1.02); GFR AFRICAN AMERICAN 133 ML/MIN (>=60); GFR NON AFRICAN AMERICAN 115 ML/MIN (>=60); GLUCOSE, SERUM 107 MG/DL (60-99); POTASSIUM, SERUM 3.9 MMOL/L (3.5-5.3); SODIUM, SERUM 140 MMOL/L (135-148)
[2016-04-14 06:58] LABS: BASOPHILS 0.6 %; BASOPHILS ABSOLUTE 0.03 10/3/uL (0.0-0.16); EOSINOPHILS 4.8 %; EOSINOPHILS ABSOLUTE 0.25 10/3/uL (0.0-0.53); HEMATOCRIT 34.6 % (36.0-48.0); HEMOGLOBIN 11.1 g/dL (12.0-16.0); LYMPHOCYTES 31.9 %; LYMPHOCYTES ABSOLUTE 1.65 10/3/uL (0.67-4.30); MEAN CORPUS HGB CONC 32.1 g/dL (32.0-36.0); MEAN CORPUSCULAR HEMOGLOB 32.1 pg (26.0-34.0); MEAN PLATELET VOLUME 10.6 fL (9.2-13.0); MONOCYTES 7.2 %; MONOCYTES ABSOLUTE 0.37 10/3/uL (0.21-1.20); NEUTROPHILS 55.5 %; NEUTROPHILS ABSOLUTE 2.87 10/3/uL (2.02-8.40); PLATELET COUNT 244 10/3/uL (150-400); RBC DISTRIBUTION WIDTH 14.3 % (12.0-16.0); RED CELL COUNT 3.46 10/6/uL (4.0-5.6); WHITE BLOOD CELLS 5.2 10/3/uL (4.5-10.5)
[2016-04-14 07:02] LABS: MANUAL DIFF NO %
[2016-04-14 07:13] LABS: BUN (BLOOD UREA NITROGEN) 17 MG/DL (6-23); CALCIUM, SERUM 8.5 MG/DL (8.5-10.4); CHLORIDE, SERUM 101 MMOL/L (96-112); CO2 (CARBON DIOXIDE) 31 MMOL/L (24-34); CREATININE 0.48 MG/DL (0.55-1.02); GFR AFRICAN AMERICAN 128 ML/MIN (>=60); GFR NON AFRICAN AMERICAN 110 ML/MIN (>=60); POTASSIUM, SERUM 4.5 MMOL/L (3.5-5.3); SODIUM, SERUM 140 MMOL/L (135-148)
[2016-04-14 07:15] LABS: GLUCOSE, SERUM 82 MG/DL (60-99)
[2016-04-16 05:21] LABS: BASOPHILS 0.4 %; BASOPHILS ABSOLUTE 0.02 10/3/uL (0.0-0.16); EOSINOPHILS ABSOLUTE 0.11 10/3/uL (0.0-0.53); HEMATOCRIT 33.1 % (36.0-48.0); HEMOGLOBIN 10.7 g/dL (12.0-16.0); IMMATURE GRANULOCYTES 0.2 %; IMMATURE GRANULOCYTES ABSOLUTE 0.01 10/3/uL (0.0-0.11); LYMPHOCYTES 23.6 %; LYMPHOCYTES ABSOLUTE 1.32 10/3/uL (0.67-4.30); MANUAL DIFF NO %; MEAN CORPUS HGB CONC 32.3 g/dL (32.0-36.0); MEAN CORPUSCULAR HEMOGLOB 32.5 pg (26.0-34.0); MEAN CORPUSCULAR VOLUME 100.6 fL (80-100); MONOCYTES 4.7 %; MONOCYTES ABSOLUTE 0.26 10/3/uL (0.21-1.20); NEUTROPHILS 69.1 %; NEUTROPHILS ABSOLUTE 3.87 10/3/uL (2.02-8.40); PLATELET COUNT 254 10/3/uL (150-400); RBC DISTRIBUTION WIDTH 13.9 % (12.0-16.0); RED CELL COUNT 3.29 10/6/uL (4.0-5.6); WHITE BLOOD CELLS 5.6 10/3/uL (4.5-10.5)
[2016-04-16 05:54] LABS: BUN (BLOOD UREA NITROGEN) 20 MG/DL (6-23); CALCIUM, SERUM 8.2 MG/DL (8.5-10.4); CHLORIDE, SERUM 99 MMOL/L (96-112); CO2 (CARBON DIOXIDE) 31 MMOL/L (24-34); CREATININE 0.48 MG/DL (0.55-1.02); GFR AFRICAN AMERICAN 128 ML/MIN (>=60); GFR NON AFRICAN AMERICAN 110 ML/MIN (>=60); GLUCOSE, SERUM 93 MG/DL (60-99); POTASSIUM, SERUM 4.1 MMOL/L (3.5-5.3); SODIUM, SERUM 139 MMOL/L (135-148)
[2016-04-19 11:13] LABS: PROCALCITONIN <0.05 ng/mL (<0.5)
[2016-04-20 20:15] LABS: BASOPHILS 0.2 %; BASOPHILS ABSOLUTE 0.02 10/3/uL (0.0-0.16); EOSINOPHILS 2.2 %; EOSINOPHILS ABSOLUTE 0.23 10/3/uL (0.0-0.53); HEMATOCRIT 32.6 % (36.0-48.0); HEMOGLOBIN 10.7 g/dL (12.0-16.0); IMMATURE GRANULOCYTES 0.4 %; IMMATURE GRANULOCYTES ABSOLUTE 0.04 10/3/uL (0.0-0.11); LYMPHOCYTES ABSOLUTE 0.74 10/3/uL (0.67-4.30); MEAN CORPUS HGB CONC 32.8 g/dL (32.0-36.0); MEAN CORPUSCULAR HEMOGLOB 32.3 pg (26.0-34.0); MEAN CORPUSCULAR VOLUME 98.5 fL (80-100); MEAN PLATELET VOLUME 9.6 fL (9.2-13.0); MONOCYTES 4.7 %; NEUTROPHILS 85.5 %; NEUTROPHILS ABSOLUTE 9.07 10/3/uL (2.02-8.40); PLATELET COUNT 228 10/3/uL (150-400); RBC DISTRIBUTION WIDTH 14.2 % (12.0-16.0); RED CELL COUNT 3.31 10/6/uL (4.0-5.6)
[2016-04-20 20:22] LABS: MANUAL DIFF NO %; WHITE BLOOD CELLS 10.6 10/3/uL (4.5-10.5)
[2016-04-22 06:41] LABS: BASOPHILS 0.3 %; BASOPHILS ABSOLUTE 0.02 10/3/uL (0.0-0.16); EOSINOPHILS 2.9 %; EOSINOPHILS ABSOLUTE 0.18 10/3/uL (0.0-0.53); HEMATOCRIT 31.3 % (36.0-48.0); HEMOGLOBIN 10.1 g/dL (12.0-16.0); IMMATURE GRANULOCYTES 0.3 %; IMMATURE GRANULOCYTES ABSOLUTE 0.02 10/3/uL (0.0-0.11); LYMPHOCYTES 21.3 %; LYMPHOCYTES ABSOLUTE 1.33 10/3/uL (0.67-4.30); MANUAL DIFF NO %; MEAN CORPUS HGB CONC 32.3 g/dL (32.0-36.0); MEAN CORPUSCULAR HEMOGLOB 32.1 pg (26.0-34.0); MEAN CORPUSCULAR VOLUME 99.4 fL (80-100); MEAN PLATELET VOLUME 9.4 fL (9.2-13.0); NEUTROPHILS 67.2 %; NEUTROPHILS ABSOLUTE 4.19 10/3/uL (2.02-8.40); PLATELET COUNT 231 10/3/uL (150-400); RED CELL COUNT 3.15 10/6/uL (4.0-5.6); WHITE BLOOD CELLS 6.2 10/3/uL (4.5-10.5)
[2016-04-22 06:49] LABS: INTERNATIONAL NORMAL RATI 1.2 UNITS (-); PROTIME (NOT ORD) 14.7 SEC (12.0-14.5)
[2016-04-22 06:50] LABS: PARTIAL THROMBO TIME 27.2 SEC (22.5-37.2)
[2016-04-22 07:05] LABS: CALCIUM, SERUM 8.7 MG/DL (8.5-10.4); CHLORIDE, SERUM 100 MMOL/L (96-112); CO2 (CARBON DIOXIDE) 30 MMOL/L (24-34); CREATININE 0.41 MG/DL (0.55-1.02); DIRECT BILIRUBIN 0.1 MG/DL (0.0-0.4); GFR AFRICAN AMERICAN 135 ML/MIN (>=60); GFR NON AFRICAN AMERICAN 116 ML/MIN (>=60); GLUCOSE, SERUM 82 MG/DL (60-99); INDIRECT BILIRUBIN(NOT ORDER) 0.1 MG/DL (0.1-0.9); POTASSIUM, SERUM 4.2 MMOL/L (3.5-5.3); SGOT(AST) 19 U/L (5-40); SGPT(ALT) 19 U/L (5-65); SODIUM, SERUM 136 MMOL/L (135-148); TOTAL BILIRUBIN 0.2 MG/DL (0-1.2); TOTAL PROTEIN 7.4 G/DL (6.0-8.5)
[2016-04-22 07:07] LABS: ALKALINE PHOSPHATASE 99 U/L (45-117); BUN (BLOOD UREA NITROGEN) 15 MG/DL (6-23)
[2016-04-25 06:11] LABS: INTERNATIONAL NORMAL RATI 1.1 UNITS (-); PROTIME (NOT ORD) 14.3 SEC (12.0-14.5)
[2016-04-25 06:16] LABS: BUN (BLOOD UREA NITROGEN) 9 MG/DL (6-23); CALCIUM, SERUM 8.7 MG/DL (8.5-10.4); CHLORIDE, SERUM 104 MMOL/L (96-112); CO2 (CARBON DIOXIDE) 28 MMOL/L (24-34); CREATININE 0.55 MG/DL (0.55-1.02); GFR AFRICAN AMERICAN 122 ML/MIN (>=60); GFR NON AFRICAN AMERICAN 106 ML/MIN (>=60); POTASSIUM, SERUM 4.1 MMOL/L (3.5-5.3); SODIUM, SERUM 140 MMOL/L (135-148)
[2016-04-25 06:17] LABS: GLUCOSE, SERUM 67 MG/DL (60-99)
[2016-04-25 19:45] LABS: ASCORBIC ACID (UR NOT ORDER) NEG (NEG); BILIRUBIN, URINE NEGATIVE (NEG); KETONE, URINE NEGATIVE (NEG); LEUKOCYTE ESTERASE(NOT OR NEG (NEG); WBC (NOT ORDERED) (RFLEX) 1 (0-5)
[2016-04-26 06:49] LABS: BASOPHILS 0.6 %; BASOPHILS ABSOLUTE 0.05 10/3/uL (0.0-0.16); EOSINOPHILS 3.6 %; EOSINOPHILS ABSOLUTE 0.29 10/3/uL (0.0-0.53); HEMATOCRIT 31.9 % (36.0-48.0); HEMOGLOBIN 10.1 g/dL (12.0-16.0); IMMATURE GRANULOCYTES 0.2 %; IMMATURE GRANULOCYTES ABSOLUTE 0.02 10/3/uL (0.0-0.11); LYMPHOCYTES 22.9 %; LYMPHOCYTES ABSOLUTE 1.85 10/3/uL (0.67-4.30); MEAN CORPUS HGB CONC 31.7 g/dL (32.0-36.0); MEAN CORPUSCULAR HEMOGLOB 31.2 pg (26.0-34.0); MEAN CORPUSCULAR VOLUME 98.5 fL (80-100); MEAN PLATELET VOLUME 9.8 fL (9.2-13.0); MONOCYTES 5.4 %; MONOCYTES ABSOLUTE 0.44 10/3/uL (0.21-1.20); NEUTROPHILS 67.3 %; NEUTROPHILS ABSOLUTE 5.43 10/3/uL (2.02-8.40); RBC DISTRIBUTION WIDTH 13.9 % (12.0-16.0); RED CELL COUNT 3.24 10/6/uL (4.0-5.6); WHITE BLOOD CELLS 8.1 10/3/uL (4.5-10.5)
[2016-04-26 06:51] LABS: MANUAL DIFF NO %; PLATELET COUNT 318 10/3/uL (150-400)
[2016-04-26 06:59] LABS: BUN (BLOOD UREA NITROGEN) 9 MG/DL (6-23); CALCIUM, SERUM 8.4 MG/DL (8.5-10.4); CHLORIDE, SERUM 105 MMOL/L (96-112); CO2 (CARBON DIOXIDE) 28 MMOL/L (24-34); CREATININE 0.51 MG/DL (0.55-1.02); GFR AFRICAN AMERICAN 125 ML/MIN (>=60); GFR NON AFRICAN AMERICAN 108 ML/MIN (>=60); GLUCOSE, SERUM 67 MG/DL (60-99); SODIUM, SERUM 141 MMOL/L (135-148)
[2016-04-29 16:56] LABS: CREATININE 0.52 MG/DL (0.55-1.02)
[2016-05-01 06:29] LABS: ALBUMIN 2.2 G/DL (3.5-5.0); CHLORIDE, SERUM 101 MMOL/L (96-112); CO2 (CARBON DIOXIDE) 31 MMOL/L (24-34); GFR AFRICAN AMERICAN 126 ML/MIN (>=60); GFR NON AFRICAN AMERICAN 109 ML/MIN (>=60); PHOSPHORUS, SERUM 4.1 MG/DL (2.5-4.5); POTASSIUM, SERUM 4.3 MMOL/L (3.5-5.3); SODIUM, SERUM 141 MMOL/L (135-148)
[2016-05-01 06:30] LABS: BUN (BLOOD UREA NITROGEN) 18 MG/DL (6-23); GLUCOSE, SERUM 84 MG/DL (60-99)
[2016-05-03 06:28] LABS: CALCIUM, SERUM 8.2 MG/DL (8.5-10.4); CHLORIDE, SERUM 99 MMOL/L (96-112); CO2 (CARBON DIOXIDE) 28 MMOL/L (24-34); CREATININE 0.66 MG/DL (0.55-1.02); GFR AFRICAN AMERICAN 115 ML/MIN (>=60); GFR NON AFRICAN AMERICAN 99 ML/MIN (>=60); POTASSIUM, SERUM 4.2 MMOL/L (3.5-5.3); SODIUM, SERUM 135 MMOL/L (135-148)
[2016-05-03 06:30] LABS: BUN (BLOOD UREA NITROGEN) 24 MG/DL (6-23); GLUCOSE, SERUM 119 MG/DL (60-99)
[2016-05-03 06:37] LABS: BASOPHILS 0.2 %; BASOPHILS ABSOLUTE 0.03 10/3/uL (0.0-0.16); EOSINOPHILS 2.3 %; EOSINOPHILS ABSOLUTE 0.31 10/3/uL (0.0-0.53); HEMATOCRIT 33.7 % (36.0-48.0); HEMOGLOBIN 10.9 g/dL (12.0-16.0); IMMATURE GRANULOCYTES 0.4 %; IMMATURE GRANULOCYTES ABSOLUTE 0.06 10/3/uL (0.0-0.11); LYMPHOCYTES 11.3 %; LYMPHOCYTES ABSOLUTE 1.52 10/3/uL (0.67-4.30); MEAN CORPUS HGB CONC 32.3 g/dL (32.0-36.0); MEAN CORPUSCULAR HEMOGLOB 31.7 pg (26.0-34.0); MEAN PLATELET VOLUME 10.2 fL (9.2-13.0); MONOCYTES 7.3 %; MONOCYTES ABSOLUTE 0.98 10/3/uL (0.21-1.20); NEUTROPHILS 78.5 %; NEUTROPHILS ABSOLUTE 10.59 10/3/uL (2.02-8.40); PLATELET COUNT 341 10/3/uL (150-400); RBC DISTRIBUTION WIDTH 14.2 % (12.0-16.0); RED CELL COUNT 3.44 10/6/uL (4.0-5.6)
[2016-05-03 06:38] LABS: MANUAL DIFF NO %; WHITE BLOOD CELLS 13.5 10/3/uL (4.5-10.5)
[2016-05-03] MEDS ORDERED: ASAB PO (10:52)
[2016-05-03] MEDS ORDERED: DELTADOSE PO (10:53)
[2016-05-03] MEDS ORDERED: AMB10 PO (11:08)
[2016-05-03] MEDS ORDERED: ROXICODONE30 MG PO (11:08)
[2016-05-03] MEDS ORDERED: SYN1 PO (11:26)
== END 2016-05-03 15:33 | disposition home health service (06) | DRG 690 ==
LOC: ER 17:11 → 7NO 04-09
PROVIDERS: Emergency Medicine; Internal Medicine; Internal Medicine Gastroenterology; Internal Medicine Pulmonary Disease; Nurse Practitioner Family
PROC: 0DJ08ZZ Inspection of Upper Intestinal Tract, Via Natural or Artificial Opening Endoscopic (ICD-10-PCS; 2016-04-22)
PROC: 0DB68ZX Excision of Stomach, Via Natural or Artificial Opening Endoscopic, Diagnostic (ICD-10-PCS; principal; 2016-04-25 12:00)
DX: N39.0 Urinary tract infection, site not specified (principal); I11.0 Hypertensive heart disease with heart failure; E44.0 Moderate protein-calorie malnutrition; K31.84 Gastroparesis; M48.56XA Collapsed vertebra, not elsewhere classified, lumbar region, initial encounter for fracture; E83.42 Hypomagnesemia; R13.10 Dysphagia, unspecified; K22.5 Diverticulum of esophagus, acquired; R11.2 Nausea with vomiting, unspecified; J44.9 Chronic obstructive pulmonary disease, unspecified; M06.9 Rheumatoid arthritis, unspecified; E03.9 Hypothyroidism, unspecified; I25.10 Atherosclerotic heart disease of native coronary artery without angina pectoris; R62.7 Adult failure to thrive; B96.20 Unspecified Escherichia coli [E. coli] as the cause of diseases classified elsewhere; M81.0 Age-related osteoporosis without current pathological fracture; Z51.5 Encounter for palliative care; G89.4 Chronic pain syndrome; K94.29 Other complications of gastrostomy
CPT/HCPCS: 49451; 49465; 71010; 72148; 74000; 74176; 74246; 80048; 80053; 80069; 80076; 80200; 81001; 82565; 82607; 82746; 82962; 83605; 83690; 83735; 83880; 84100; 84132; 84134; 84145; 84443; 84484; 84703; 85025; 85610; 85730; 87040; 87077; 87086; 87186; 87493; 87493-59; 87804; 88305; 90686; 93005; 94640; 96374; 96375; 97110-GP; 97162-GP; 97164-GP; 97530-GP; 99152; 99153; 99285; A9270-GY; A9577; C1769; G0008; G0463; J1170; J1200; J1885; J1980; J2250; J2405; J2550; J2765; J3010; J3260; J3370